=== PATIENT | male | born 1990 | race Caucasian/White ===

== ENCOUNTER 2018-04-09 07:28 | Emergency (ER) | payer SELFPAY ==
[2018-04-09 08:22] LABS: Bilirubin Negative (Negative); Blood, Urine Large (Negative); Clarity Cloudy (Clear); Glucose, Urine (Dipstick) Negative (Negative); Leukocyte Large (Negative); Nitrite Positive (Negative); Protein, Urine (Dipstick) 100 mg/dL (Neg-Trace); Urobilinogen 0.2 mg/dL (0.2-1.0)
[2018-04-09] MEDS ORDERED: Cephalexin 500 MG CAP ONE (08:28)
[2018-04-09] MEDS ORDERED: Azithromycin 250 MG TAB ONE (08:28)
[2018-04-09 08:35] LABS: Bacteria/HPF 3+ HPF (None Seen); RBC/HPF 0-3 HPF (0-3); Squamous Epithelial 0-3 HPF (0-3)
== END 2018-04-09 08:42 | disposition home or self-care (01) ==
LOC: EDBD 07:28 → BURERS 07:28
DX: N12 Tubulo-interstitial nephritis, not specified as acute or chronic (principal)
CPT/HCPCS: 81003; 81015; 87491; 87591; 99283

== ENCOUNTER 2022-11-28 11:01 | Emergency (ER) | payer SELFPAY | END 2022-11-28 11:35 | disposition left against medical advice (07) | LOC: BURERS 11:01 | DX: Z53.21 Procedure and treatment not carried out due to patient leaving prior to being seen by health care provider (principal) ==

== ENCOUNTER 2024-04-08 02:47 | Emergency (ER) | payer SELFPAY ==
[2024-04-08] MEDS ORDERED: Cefepime 2 GM VIAL ONE (04:05)
[2024-04-08] MEDS ORDERED: Vancomycin HCl 750 MG VIAL ONE (04:14)
[2024-04-08 04:16] LABS: #Basophils 0.1 thou/uL (0.0-0.2); #Eosinphils 0.4 thou/uL (0.0-0.7); #Lymphocytes 1.8 thou/uL (1.20-3.40); #Monocytes 0.9 thou/uL (0.11-0.59); #Neutrophils 6.7 thou/uL (1.40-6.50); %Basophils 0.6 % (0.0-1.0); %Eosinophils 4.5 % (0.0-10.0); %Lymphocytes 18.1 % (21.0-51.0); %Monocytes 8.8 % (0.0-10.0); Hematocrit 46.8 % (42.0-52.0); Hemoglobin 15.5 g/dL (14.0-18.0); Mean Corpuscular HGB CONC 33.1 g/dL (32.0-36.0); Mean Corpuscular Hemoglobin 29.5 pg (27.0-31.0); Mean Corpuscular Volume 89.1 fl (78.0-98.0); Mean Platelet Volume 6.7 fL (7.4-10.4); Platelet Count 291 10x3/uL (130-400); RBC Distribution Width 11.7 % (11.5-14.5); Red Blood Cell (RBC) Count 5.26 mill/uL (4.70-6.10); White Blood Cell (WBC) Count 9.8 10x3/uL (4.8-10.8)
[2024-04-08 04:21] LABS: ALT (SGPT) 37 U/L (8-55); AST (SGOT) 23 U/L (5-34); Albumin 4.2 g/dL (3.5-5.0); Alkaline Phosphatase 104 U/L (40-110); Anion Gap 13 mmol/L (10-20); BUN (Urea Nitrogen) 11 mg/dL (8.9-20.6); Bilirubin, Total 0.4 mg/dL (0.2-1.2); Calc. Creatinine Clearance 0 mL/min (70-130); Calcium 9.4 mg/dL (7.8-10.44); Carbon Dioxide 27 mmol/L (22-29); Chloride 105 mmol/L (98-107); Estimated GFR 94; Globulin 3.3 g/dL (2.4-3.5); Glucose 97 mg/dL (70-105); Potassium 3.7 mmol/L (3.5-5.1); Protein, Total 7.5 g/dL (6.0-8.3); Sodium 141 mmol/L (136-145)
[2024-04-08] MEDS ORDERED: Iopamidol 370 76% 100 ML VIAL ONE (09:33)
== END 2024-04-08 10:05 | disposition left against medical advice (07) ==
LOC: BURERS 02:47
DX: L03.113 Cellulitis of right upper limb (principal); F17.210 Nicotine dependence, cigarettes, uncomplicated
CPT/HCPCS: 80053; 83605; 85025; 86141; 87070; 87077; 87186; 87205; 96365; 96366; 96367; J0692; J3370; Q9967

== ENCOUNTER 2024-05-09 02:34 | Emergency (ER) | payer SELFPAY ==
[2024-05-09 03:11] LABS: Hematocrit 46.7 % (42.0-52.0); Hemoglobin 15.3 g/dL (14.0-18.0); Mean Corpuscular HGB CONC 32.8 g/dL (32.0-36.0); Mean Corpuscular Hemoglobin 28.8 pg (27.0-31.0); Mean Corpuscular Volume 87.8 fl (78.0-98.0); Platelet Count 214 10x3/uL (130-400); RBC Distribution Width 11.7 % (11.5-14.5); Red Blood Cell (RBC) Count 5.32 mill/uL (4.70-6.10); White Blood Cell (WBC) Count 31.5 10x3/uL (4.8-10.8)
[2024-05-09 03:27] LABS: ALT (SGPT) 90 U/L (8-55); AST (SGOT) 89 U/L (5-34); Acetaminophen Less than 10 mcg/mL (10.0-30.0); Albumin 4.5 g/dL (3.5-5.0); Alcohol Less than 10.0 mg/dL (Less than 10); Alkaline Phosphatase 86 U/L (40-110); Anion Gap 18 mmol/L (10-20); BUN (Urea Nitrogen) 26 mg/dL (8.9-20.6); CK (CPK) 2497 U/L (30-200); Calc. Creatinine Clearance 0 mL/min (70-130); Calcium 9.2 mg/dL (7.8-10.44); Carbon Dioxide 21 mmol/L (22-29); Chloride 106 mmol/L (98-107); Estimated GFR 46; Glucose 116 mg/dL (70-105); Potassium 4.1 mmol/L (3.5-5.1); Protein, Total 7.5 g/dL (6.0-8.3); Salicylate Less than 8.0 mg/dL (15.0-30.0); Sodium 141 mmol/L (136-145)
[2024-05-09 03:27] LABS: Bilirubin Negative (Negative); Blood, Urine Negative (Negative); Clarity Clear (Clear); Glucose, Urine (Dipstick) Negative (Negative); Ketone, Urine Negative (Negative); Leukocyte Negative (Negative); Nitrite Negative (Negative); Protein, Urine (Dipstick) 30 mg/dL (Neg-Trace); Urobilinogen 0.2 mg/dL (Less than 2); pH, Urine 5.5 (5.0-9.0)
[2024-05-09 03:28] LABS: Troponin I Less than 0.010 ng/mL (< 0.028)
[2024-05-09 03:33] LABS: CAUTI Indications for Culture Fever or rigors; RBC/HPF None Seen HPF (0-3); WBC/HPF 0-3 HPF (0-3)
[2024-05-09 03:34] LABS: Bacteria/HPF Rare-Few HPF (None Seen); Sperm/HPF 1+ HPF (None Seen); Squamous Epithelial 0-3 HPF (0-3)
[2024-05-09 03:35] LABS: Urine Culture Reflex No No
[2024-05-09 03:38] LABS: Amphetamine Detected (NotDetected); Barbiturates Screen Not Detected (NotDetected); Benzodiazepine Screen Not Detected (NotDetected); Cocaine Metabolite Screen Not Detected (NotDetected); Methadone Not Detected (NotDetected); Methamphetamine Detected (NotDetected); Opiate Screen Not Detected (NotDetected); Oxycodone Screen Not Detected (NotDetected); Phencyclidine (PCP) Not Detected (NotDetected); THC/Cannabinoid Screen Detected (NotDetected); Tricyclic Screen Not Detected (NotDetected)
[2024-05-09 03:38] LABS: Band 6 % (5-11); Lymphocytes 7 % (21-51); MDiff Complete? YES; Monocytes 7 % (0-10); Neutrophil 79 % (42-75); Platelet Adequacy Comment Appears Adequate
[2024-05-09 04:19] LABS: Influenza A by NAA Not Detected (NotDetected); Influenza B by NAA Not Detected (NotDetected); SARS-CoV-2 NAA Rapid Test Not Detected (NotDetected)
[2024-05-09 04:58] LABS: #Basophils 0.1 thou/uL (0.0-0.2); #Lymphocytes 0.6 thou/uL (1.20-3.40); #Monocytes 1.7 thou/uL (0.11-0.59); %Basophils 0.6 % (0.0-1.0); %Eosinophils 0.1 % (0.0-10.0); %Lymphocytes 2.7 % (21.0-51.0); %Monocytes 8.1 % (0.0-10.0); %Neutrophils 88.6 % (42.0-75.0); Hematocrit 37.9 % (42.0-52.0); Hemoglobin 12.9 g/dL (14.0-18.0); Mean Corpuscular HGB CONC 34.1 g/dL (32.0-36.0); Mean Corpuscular Volume 87.7 fl (78.0-98.0); Platelet Count 161 10x3/uL (130-400); RBC Distribution Width 11.5 % (11.5-14.5); Red Blood Cell (RBC) Count 4.32 mill/uL (4.70-6.10); White Blood Cell (WBC) Count 21.4 10x3/uL (4.8-10.8)
[2024-05-09 05:14] LABS: Anion Gap 15 mmol/L (10-20); BUN (Urea Nitrogen) 24 mg/dL (8.9-20.6); CK (CPK) 1937 U/L (30-200); Calc. Creatinine Clearance 0 mL/min (70-130); Calcium 7.9 mg/dL (7.8-10.44); Carbon Dioxide 20 mmol/L (22-29); Chloride 108 mmol/L (98-107); Estimated GFR 63; Glucose 91 mg/dL (70-105); Potassium 3.5 mmol/L (3.5-5.1); Sodium 139 mmol/L (136-145)
== END 2024-05-09 05:37 ==
LOC: EEVIPCON 02:34 → BURERS 02:34
DX: E86.0 Dehydration (principal); N17.9 Acute kidney failure, unspecified; F15.10 Other stimulant abuse, uncomplicated; F17.210 Nicotine dependence, cigarettes, uncomplicated
CPT/HCPCS: 36415; 51702; 80053; 80306; 80307; 81001; 82550; 84443; 84484; 85025; 87081; 87430; 96360